=== PATIENT | male | born 1945 | race Caucasian/White ===

== ENCOUNTER → 2021-10-07 | Outpatient (CLI) | payer OTHER, MEDICARE ==
[2021-10-07 14:09] LABS: Source, Urine Voided
[2021-10-07 14:46] LABS: Bilirubin, Urine Neg (Neg); Blood, Urine 1+ (Neg); Glucose Qualitative, Urine 4+ (Neg); Ketones, Urine Neg (Neg); Leukocyte Esterase, Urine 3+ (Neg); Nitrite, Urine Neg (Neg); Protein, Urine Neg (Neg); Specific Gravity, Urine 1.005 (1.003-1.022); Urobilinogen, Urine NORM (Normal)
[2021-10-07 15:14] LABS: Appearance, Urine Hazy (Clear); Color, Urine Pale Yellow (P-Yellow)
[2021-10-07 15:15] LABS: Bacteria Few /hpf; Squamous Epithelial Cells Few /hpf (Few); Yeast/Fungi Urine Rare /hpf
== END ==
LOC: LAB SHORT 14:07
PROVIDERS: Radiology Therapeutic Radiology
DX: C61 Malignant neoplasm of prostate (principal)
CPT/HCPCS: 81001; 87077; 87086; 87186

== ENCOUNTER 2023-05-31 07:20 | Day surgery (SDC) | payer OTHER ==
[~2023-05-31] VITALS: Ht 180.3 cm; Wt 98.7 kg
[2023-05-31] MEDS ORDERED: ATOR10 PO (08:12)
[2023-05-31] MEDS ORDERED: GLIP5ER PO (08:12)
[2023-05-31] MEDS ORDERED: LOSA25 PO (08:13)
[2023-05-31] MEDS ORDERED: Lovastatin20 MG PO (08:13)
[2023-05-31] MEDS ORDERED: METF500 PO (08:15)
[2023-05-31 09:15] VITALS: BP 94/69
--- NOTE | 2023-05-31 09:18 | NUR ---
05/31/23 0918 Samira Duran IV REMOVED CANNULA INTACT, PT DERRICK WELL. DENIES PAIN AND NAUSEA
== END 2023-05-31 09:31 | disposition home or self-care (01) ==
LOC: ORSCSDS 07:20
PROVIDERS: Ophthalmology
PROC: 08RK3JZ Replacement of Left Lens with Synthetic Substitute, Percutaneous Approach (ICD-10-PCS; principal; 2023-05-31 09:00)
DX: E11.36 Type 2 diabetes mellitus with diabetic cataract (principal); H25.13 Age-related nuclear cataract, bilateral; H52.202 Unspecified astigmatism, left eye; I10 Essential (primary) hypertension; Z79.84 Long term (current) use of oral hypoglycemic drugs; Z79.899 Other long term (current) drug therapy
CPT/HCPCS: 82947; J2250; J3010; J3301; J7040; V2632

== ENCOUNTER 2023-06-07 07:26 | Day surgery (SDC) | payer OTHER ==
[~2023-06-07] VITALS: Ht 180.3 cm; Wt 99.1 kg
[~2023-06-07 07:26] MED LIST: ATOR10 PO; GLIP5ER PO; LOSA25 PO; Lovastatin20 MG PO; METF500 PO
[2023-06-07] MEDS ORDERED: TAMS.4ER PO (08:22)
--- NOTE | 2023-06-07 08:31 | NUR ---
06/07/23 0831 Teresa Maxwell IN AT 0818 ROBERTO IN AT 0820
[2023-06-07 09:20] VITALS: BP 105/63
--- NOTE | 2023-06-07 09:40 | NUR ---
06/07/23 0940 Anshu Souza IV REMOVED INTACT. SITE WNL.
== END 2023-06-07 09:34 | disposition home or self-care (01) ==
LOC: ORSCSDS 07:26
PROVIDERS: Ophthalmology
PROC: 08RJ3JZ Replacement of Right Lens with Synthetic Substitute, Percutaneous Approach (ICD-10-PCS; principal; 2023-06-07 09:00)
DX: E11.36 Type 2 diabetes mellitus with diabetic cataract (principal); H25.11 Age-related nuclear cataract, right eye; H52.201 Unspecified astigmatism, right eye; E11.22 Type 2 diabetes mellitus with diabetic chronic kidney disease; I12.9 Hypertensive chronic kidney disease with stage 1 through stage 4 chronic kidney disease, or unspecified chronic kidney disease; N18.9 Chronic kidney disease, unspecified; E78.5 Hyperlipidemia, unspecified; F17.210 Nicotine dependence, cigarettes, uncomplicated; K21.9 Gastro-esophageal reflux disease without esophagitis; J45.909 Unspecified asthma, uncomplicated; Z79.899 Other long term (current) drug therapy; Z79.84 Long term (current) use of oral hypoglycemic drugs
CPT/HCPCS: 82947; J2001; J2250; J3010; J3301; J7040; V2632